=== PATIENT | male | born 1975 | race Two or more races ===

== ENCOUNTER 2024-02-01 10:37 | Emergency (ER) | payer OTHER, MEDICAID ==
[~2024-02-01] VITALS: Ht 182.9 cm; Wt 122.2 kg
[2024-02-01] MEDS ORDERED: LOSA100T33 PO (10:54)
[2024-02-01] MEDS: cloNIDine HCL 0.1 MG TAB PO ONE (11:06)
--- NOTE | 2024-02-01 11:18 | ED.PDOC ---
History of Present Illness HPI Comments 48-year-old male who comes in with chief complaint of an elevated blood pressure. The patient has a history of hypertension states that he is on lisinopril 40 mg q.day. The patient denies any chest pain, shortness for breath, headache or vomiting. The patient called his health nurse because his blood pressure has been elevated over the past few days. She told him to come to the emergency department's immediately. Upon arrival, the patient states that he is compliant with all of his medications but he does also admit to using PCP a few days ago. Chief Complaint: High Blood Pressure Time Seen by MD: 10:41 Reviewed Notes: Nurses Notes, Medications, Allergies (No allergies to medications) Allergies: Coded Allergies: NO KNOWN ALLERGIES (Unverified , 02/01/24) Home Meds Active Scripts Losartan Potassium & Hydrochlo (Losartan Potassium/Hydroc) 1 Tab Tab, 1 TAB PO DAILY, #30 TAB 5 Refills Prov:THALIA OGDEN MD 02/01/24 Information Source: Patient Mode of Arrival: Ambulatory Severity: Mild Timing: Days Duration: Since onset Prehospital treatment: None Associated signs and symptoms No headache, nausea or vomiting Past Medical History PAST MEDICAL HISTORY: Arthritis, CAD, Cancer, High Lipids, HTN, Schizophrenia Past Medical History (Other): PTSD Surgical History (Other): Right testicular removal Family History Family History: Family hx of Cancer, Family hx of heart cyndi Social History Smoker: Cigarettes Alcohol: Denies ETOH Use Drugs: Marijuana, Other (PCP) Lives In: Home Constitutional: denies: chills, diaphoresis, fatigue, fever, malaise, sweats, weakness, others EENTM: denies: blurred vision, double vision, ear bleeding, ear discharge, ear drainage, ear pain, ear ringing, eye pain, eye redness, hearing loss, mouth pain, mouth swelling, nasal discharge, nose bleeding, nose congestion, nose pain, photophobia, tearing, throat pain, throat swelling, voice changes, others Respiratory: denies: cough, hemoptysis, orthopnea, SOB at rest, shortness of breath, SOB with excertion, stridor, wheezing, others Cardiovascular: denies: chest pain, dizzy spells, diaphoresis, Dyspnea on exertion, edema, irregular heart beat, left arm pain, lightheadedness, palpitations, PND, syncope, others Gastrointestinal: denies: abdomen distended, abdominal pain, blood streaked bowels, constipated, diarrhea, dysphagia, difficulty swallowing, hematemesis, melena, nausea, poor appetite, poor fluid intake, rectal bleeding, rectal pain, vomiting, others Genitourinary: denies: burning, dysuria, flank pain, frequency, hematuria, incontinence, penile discharge, penile sore, pain, testicle pain, testicle swelling, urgency, others Neurological: denies: dizziness, fainting, headache, left sided numbness, left sided weakness, numbness, paresthesia, pre-existing deficit, right sided numbness, right sided weakness, seizure, speech problems, tingling, tremors, weakness, others Musculoskeletal: denies: back pain, gout, joint pain, joint swelling, muscle pain, muscle stiffness, neck pain, others Integumetry: denies: bruises, change in color, change in hair/nails, dryness, laceration, lesions, lumps, rash, wounds, others Allergic/Immunocompromised: denies: Difficulty Healing, Frequent Infections, Hives, Itching, others Hematologic/Lymphatic: denies: anemia, blood clots, easy bleeding, easy bruising, swollen glands, others Endocrine: denies: excessive hunger, excessive sweating, excessive thirst, excessive urination, flushing, intolerance to cold, intolerance to heat, unexplained weight gain, unexplained weight loss, others Psychiatric: denies: anxiety, bipolar disorder, depression, hopeless, panic disorder, schizophrenia, sleepless, suicidal, others Physical Exam General Appearance: No Apparent Distress, Obese HEENT: Normal ENT Inspection, Pharynx Normal, TMs Normal Neck: Full Range of Motion, Non-Tender, Normal, Normal Inspection Respiratory: Chest Non-Tender, Lungs Clear, No Accessory Muscle Use, No Respiratory Distress, Normal Breath Sounds Cardiovascular: No Edema, No JVD, No Murmur, No Gallop, Normal Peripheral Pulses, Regular Rate/Rhythm Breast Exam: Deferred Gastrointestinal: No Organomegaly, Non Tender, No Pulsatile Mass, Normal Bowel Sounds, Soft Genitalia: Deferred Pelvic: Deferred Rectal: Deferred Extremities: No calf tenderness, Normal capillary refill, Normal inspection, Normal range of motion, Non-tender, No pedal edema Musculoskeletal : Apperance: Normal Neurologic: Alert, child adolescent psychiatrist II-XII nml as Tested, No Motor Deficits, Normal Affect, Normal Mood, No Sensory Deficits Cerebellar Function: Normal Reflexes: Normal Skin: Dry, Normal Color, Warm Lymphatic: No Adenopathy Was a procedure done? Was a procedure done?: No Differential Dx Considerations may include: Hypertensive urgency, accelerated hypertension X-Ray, Labs, Meds, VS Vital Signs Date Time Temp Pulse Resp B/P (MAP) Pulse Ox O2 Delivery O2 Flow Rate FiO2 02/01/24 11:06 143/95 02/01/24 11:05 102 18 96 Room Air 02/01/24 11:05 98.2 102 18 143/95 (111) 96 98.2 02/01/24 10:52 97.8 107 16 155/95 (115) 99 Lab Test 02/01/24 11:10 02/01/24 10:45 Range/Units Sodium Level 142 136-145 mmol/L Potassium Level 3.5 3.5-5.1 mmol/L Chloride Level 108 H 98-107 mmol/L Carbon Dioxide Level 28 20-31 mmol/L Anion Gap 6 5-15 Blood Urea Nitrogen 12 9-23 mg/dL Creatinine 1.04 0.700-1.30 mg/dL Glomerular Filtration Rate Calc 89 >90 mL/min BUN/Creatinine Ratio 11.5 10.0-20.0 Serum Glucose 126 H 74-106 mg/dL Calcium Level 9.7 8.7-10.4 mg/dL Urine Color Yellow Yellow Urine Clarity Clear Clear Urine pH 5.5 5.0-9.0 Urine Specific [place] 1.038 H 1.001-1.035 Urine Protein Negative Negative Urine Ketones Negative Negative Urine Blood Negative Negative /uL Urine Nitrite Negative Negative Urine Bilirubin Negative Negative Urine Urobilinogen Normal Negative mg/dL Urine Leukocyte Esterase Negative Negative /uL Urine RBC 1 0 - 3 /hpf Urine WBC 7 0 - 3 /hpf Urine Squamous Epithelial Cells Few <5 /hpf Urine Bacteria Few H None Seen /hpf Urine Mucus Few None Seen Urine Glucose 4+ H Normal mg/dL Current Medications Medications (Trade) Dose Ordered Sig/Ebonie Route Start Time Stop Time Status Last Admin Clonidine HCl (Catapres Tablet) 0.2 mg ONCE ONCE PO 02/01/24 11:00 02/01/24 11:01 DC 02/01/24 11:06 The patient was given clonidine 0.2 mg by mouth upon arrival to the emergency department The chemistry panel is within normal limits The patient was being discharged and told to follow up with the primary care doctor The patient was started on losartan and told to discontinue his lisinopril The patient will follow up with the primary care doctor Images Reviewed?: Images reviewed and evaluated by me Time of 1ST Reevaluation: 11:20 Reevaluation 1ST: Unchanged Time of 2ND Reevaluation: 11:21 Reevaluation 2ND: Improved Patient Education/Counseling: Diagnosis, Treatment, Prognosis, Need For Follow Up Family Education/Counseling: No Family Present Departure 1 Departure Time of Disposition: 12:24 Impression: Primary Impression: Hypertensive urgency Disposition: 01 HOME / SELF CARE / HOMELESS Condition: Fair e-Prescriptions Losartan Potassium & Hydrochlo (Losartan Potassium/Hydroc) 1 Tab Tab 1 TAB PO DAILY, #30 TAB 5 Refills Prov: THALIA OGDEN MD 02/01/24 Discharged With: Self Critical Care Note Critical Care Time?: No Stability Stability form required: No Heart Score Heart Score: Heart Score Response (Comments) Value History N/A 0 EKG N/A 0 Age N/A 0 Risk Factors N/A 0 Troponin N/A 0 Total 0 THALIA OGDEN MD Feb 01, 2024 11:18
[2024-02-01 11:39] LABS: Chloride 108 mmol/L (98-107); Potassium 3.5 mmol/L (3.5-5.1); Sodium 142 mmol/L (136-145)
[2024-02-01 11:40] LABS: Anion Gap 6 (5-15); Carbon Dioxide 28 mmol/L (20-31)
[2024-02-01 11:41] LABS: Calcium 9.7 mg/dL (8.7-10.4)
[2024-02-01 11:46] LABS: BUN/Creatinine Ratio 11.5 (10.0-20.0); Blood Urea Nitrogen 12 mg/dL (9-23); Glucose 126 mg/dL (74-106)
[2024-02-01 12:07] LABS: Urine Bacteria FEW /hpf (None Seen); Urine Blood Negative /uL (Negative); Urine Clarity Clear (Clear); Urine Color Yellow (Yellow); Urine Mucus FEW (None Seen); Urine Protein, UAD Negative (Negative); Urine Specific Gravity 1.038 (1.001-1.035); Urine Urobilinogen Normal (Negative); Urine WBC 7 /hpf (0 - 3); Urine pH 5.5 (5.0-9.0)
[2024-02-01 12:32] VITALS: BP 98/70; PULSE 99; RESP 18; TEMP 97.9; O2SAT 96
== END 2024-02-01 12:39 | disposition home or self-care (01) ==
LOC: ER 10:37
DX: I16.0 Hypertensive urgency (principal); I25.10 Atherosclerotic heart disease of native coronary artery without angina pectoris; M19.90 Unspecified osteoarthritis, unspecified site; F20.9 Schizophrenia, unspecified; E78.5 Hyperlipidemia, unspecified; F17.210 Nicotine dependence, cigarettes, uncomplicated; F15.90 Other stimulant use, unspecified, uncomplicated; Z85.9 Personal history of malignant neoplasm, unspecified; Z98.890 Other specified postprocedural states; Z79.899 Other long term (current) drug therapy
CPT/HCPCS: 36415; 80048; 81001

== ENCOUNTER 2024-05-31 12:28 | Inpatient (IN) | payer OTHER, MEDICAID ==
[~2024-05-31] VITALS: Ht 182.9 cm; Wt 123.1 kg
[~2024-05-31 12:28] MED LIST: LOSA100T33 PO
--- NOTE | 2024-05-31 13:13 | ED.PDOC ---
General HPI Comments 49 year old male presents to the ED with chief complaint of decreased urine output. Patient reports that he has been experiencing decreased urine output for the past week. Patient relays that he also has had some intermittent chest pains and SOB unrelated to his urinary concern. Patient denies any dysuria, hematuria, abdominal pain, N/V/D, dizziness, fever, or chills. Chief Complaint: Urinary Time Seen by MD: 13:09 Primary Care Provider: FER Reviewed notes: Nurses Notes, Medications, Allergies Allergies: Coded Allergies: NO KNOWN ALLERGIES (Unverified , 02/01/24) Home Meds Active Scripts Losartan Potassium & Hydrochlo (Losartan Potassium/Hydroc) 1 Tab Tab, 1 TAB PO DAILY, #30 TAB 5 Refills Prov:THALIA OGDEN MD 02/01/24 Information Source: Patient Mode of Arrival: Ambulatory Severity: Moderate Timing: Weeks Duration: Since onset Has not urinated for: Minutes Prehospital treatment: None Onset: Spontaneous Symptoms: Other (Decreased urine output) History of: BPH Location: None Penile discharge: None Modifying factors: None associated signs and symptoms: Other (Decreased urine output) Past Medical History PAST MEDICAL HISTORY: Arthritis, CAD, Cancer, DM, High Lipids, HTN, Schizophrenia Past Medical History (Other): Enlarged prostate Family History Family History: Family hx of Cancer, Family hx of heart cyndi Social History Smoker: Cigarettes Alcohol: Denies ETOH Use Drugs: Marijuana, Other Lives In: Home Constitutional: denies: chills, diaphoresis, fatigue, fever, malaise, sweats, weakness, others EENTM: denies: blurred vision, double vision, ear bleeding, ear discharge, ear drainage, ear pain, ear ringing, eye pain, eye redness, hearing loss, mouth pain, mouth swelling, nasal discharge, nose bleeding, nose congestion, nose pain, photophobia, tearing, throat pain, throat swelling, voice changes, others Respiratory: reports: shortness of breath; denies: cough, hemoptysis, orthopnea, SOB at rest, SOB with excertion, stridor, wheezing, others Cardiovascular: reports: chest pain; denies: dizzy spells, diaphoresis, Dyspnea on exertion, edema, irregular heart beat, left arm pain, lightheadedness, palpitations, PND, syncope, others Gastrointestinal: denies: abdomen distended, abdominal pain, blood streaked bowels, constipated, diarrhea, dysphagia, difficulty swallowing, hematemesis, melena, nausea, poor appetite, poor fluid intake, rectal bleeding, rectal pain, vomiting, others Genitourinary: reports: others (Decreased urination); denies: burning, dysuria, flank pain, frequency, hematuria, incontinence, penile discharge, penile sore, pain, testicle pain, testicle swelling, urgency Neurological: denies: dizziness, fainting, headache, left sided numbness, left sided weakness, numbness, paresthesia, pre-existing deficit, right sided numbness, right sided weakness, seizure, speech problems, tingling, tremors, weakness, others Musculoskeletal: denies: back pain, gout, joint pain, joint swelling, muscle pain, muscle stiffness, neck pain, others Integumetry: denies: bruises, change in color, change in hair/nails, dryness, laceration, lesions, lumps, rash, wounds, others Allergic/Immunocompromised: denies: Difficulty Healing, Frequent Infections, Hives, Itching, others Hematologic/Lymphatic: denies: anemia, blood clots, easy bleeding, easy bruising, swollen glands, others Endocrine: denies: excessive hunger, excessive sweating, excessive thirst, excessive urination, flushing, intolerance to cold, intolerance to heat, unexplained weight gain, unexplained weight loss, others Psychiatric: denies: anxiety, bipolar disorder, depression, hopeless, panic disorder, schizophrenia, sleepless, suicidal, others All Other Systems: Reviewed and Negative Physical Exam General Appearance: Moderate Distress, Normal HEENT: Normal ENT Inspection, PERRL/EOMI Neck: Full Range of Motion, Non-Tender, Normal, Normal Inspection Respiratory: Chest Non-Tender, Lungs Clear, No Accessory Muscle Use, No Respiratory Distress, Normal Breath Sounds Cardiovascular: No Edema, No JVD, No Murmur, No Gallop, Normal Peripheral Pulses, Regular Rate/Rhythm Breast Exam: Deferred Gastrointestinal: No Organomegaly, Non Tender, No Pulsatile Mass, Normal Bowel Sounds, Soft Genitalia: Deferred Pelvic: Deferred Rectal: Deferred Extremities: No calf tenderness, Normal capillary refill, Normal inspection, Normal range of motion, Non-tender, No pedal edema Musculoskeletal : Apperance: Normal Neurologic: Alert, educational resource coordinator II-XII nml as Tested, No Motor Deficits, Normal Affect, Normal Mood, No Sensory Deficits Cerebellar Function: Normal Reflexes: Normal Skin: Dry, Normal Color, Warm Peripheral Pulses: 3+ Radial (R), 3+ Radial (L) Lymphatic: No Adenopathy Was a procedure done? Was a procedure done?: No Differential Diagnosis Kidney stone (Female): Musculoskeletal pain, Urinary obstruction, Urolithiasis X-Ray, Labs, Meds, VS Vital Signs Date Time Temp Pulse Resp B/P (MAP) Pulse Ox O2 Delivery O2 Flow Rate FiO2 05/31/24 12:45 97.8 90 16 153/96 (115) 94 Lab Test 05/31/24 13:21 05/31/24 12:51 05/31/24 12:50 Range/Units White Blood Count Pending Red Blood Count Pending Hemoglobin Pending Hematocrit Pending Mean Corpuscular Volume Pending Mean Corpuscular Hemoglobin Pending Mean Corpuscular Hemoglobin Concent Pending Red Cell Distribution Width Pending Platelet Count Pending Mean Platelet Volume Pending Neutrophils (%) (Auto) Pending Lymphocytes (%) (Auto) Pending Monocytes (%) (Auto) Pending Basophils (%) (Auto) Pending Neutrophils # (Auto) Pending Lymphocytes # (Auto) Pending Monocytes # (Auto) Pending Sodium Level Pending Potassium Level Pending Chloride Level Pending Carbon Dioxide Level Pending Anion Gap Pending Blood Urea Nitrogen Pending Creatinine Pending Glomerular Filtration Rate Calc Pending BUN/Creatinine Ratio Pending Serum Glucose Pending Calcium Level Pending Troponin I High Sensitivity Pending POC Glucose 155 H 70-106 mg/dl Urine Color Pending Urine Clarity Pending Urine pH Pending Urine Specific [place] Pending Urine Protein Pending Urine Ketones Pending Urine Blood Pending Urine Nitrite Pending Urine Bilirubin Pending Urine Urobilinogen Pending Urine Leukocyte Esterase Pending Urine RBC Pending Urine Microscopic WBC Pending Urine Squamous Epithelial Cells Pending Urine Bacteria Pending Urine Glucose Pending Current Medications Medications (Trade) Dose Ordered Sig/Ebonie Route Start Time Stop Time Status Last Admin Aspirin 325 mg ONCE ONCE PO 05/31/24 13:15 05/31/24 13:16 DC 05/31/24 13:32 Patient alert. Complaining of chest pain problem was urinating. Vitals stable. Answering all questions. Possible chronic kidney disease. Blood sugar elevated. Possible echocardiogram. Urology consultation. Blood pressure slightly elevated. Reviewed his history. Explained to the patient. Continue monitoring. Time of 1ST Reevaluation: 14:09 Reevaluation 1ST: Unchanged Patient Education/Counseling: Diagnosis, Treatment Family Education/Counseling: No Family Present Additional Information Previous visit documents reviewed: 02/01/24 for hypertensive urgency The following tests were ordered, and results were reviewed by me: CBC, BMP, UA, Troponin, Chest XR Additional Information was gathered from interviewing the following independent historians: None I reviewed and agreed with the following test results read by other providers: Chest XR I discussed treatment and results with medical personnel. Departure 1 Departure Time of Disposition: 13:35 Impression: Primary Impression: Uncontrolled diabetes mellitus Qualified Codes: E13.65 - Other specified diabetes mellitus with hyperglycemia Additional Impressions: HTN (hypertension) Qualified Codes: I10 - Essential (primary) hypertension Chest pain of unknown etiology Prostate hypertrophy Disposition: ADMITTED INPATIENT Admit to: Med Surg Condition: Guarded Critical Care Note Critical Care Time?: No Stability Stability form required: No Heart Score Heart Score: Heart Score Response (Comments) Value History Slightly Suspicious 0 EKG Normal 0 Age 45-64 1 Risk Factors >3 or Hx ASHD 2 Troponin Normal limit 0 Total 3 I personally scribed for RAMIREZ LUO MD ([email or web address]) on 05/31/24 at 13:13. Electronically submitted by Wisam San ([email or web address]). RAMIREZ LUO MD May 31, 2024 13:13
[2024-05-31] MEDS: ASPirin 325 MG TAB PO ONE (13:32)
[2024-05-31 13:33] LABS: Urine Bacteria None Seen /hpf (None Seen)
[2024-05-31 13:36] VITALS: PULSE 84; RESP 16; O2SAT 96
--- NOTE | 2024-05-31 13:42 | DVH ---
CHEST RADIOGRAPH Indication: sob Technique: Single frontal view of the chest was obtained Comparison: None FINDINGS: Lines and Tubes: None Lungs: No focal consolidation. Pleura: No effusion. No pneumothorax. Cardiomediastinal contours: Unremarkable Bones: No acute osseous abnormality. IMPRESSION: No acute cardiopulmonary disease.
[2024-05-31 13:47] LABS: Basophils # (auto) 0.1 10 ^3/uL (0-0.2); Basophils % (auto) 0.8 % (0.0-2.0); Eosinophils # (auto) 0.2 10 ^3/uL (0-0.8); Eosinophils % (auto) 1.6 % (0.0-7.0); Hematocrit 43.3 % (41.0-53.0); Hemoglobin 14.5 g/dL (13.5-17.5); Lymphocytes # (auto) 2.4 10 ^3/uL (0.4-5.4); Lymphocytes % (auto) 19.7 % (10.0-50.0); Mean Corpuscular Hemoglobin 29.2 pg (28.0-32.0); Mean Corpuscular Hgb Conc. 33.5 g/dL (32.0-36.0); Mean Corpuscular Volume 86.9 fL (80.0-100.0); Monocytes # (auto) 0.5 10 ^3/uL (0-1.3); Neutrophils % (auto) 73.9 % (37.0-80.0); Nucleated Red Blood Cells % 0.1 %; Platelet Count (auto) 264 10^3/uL (140-450); Potassium 4.1 mmol/L (3.5-5.1); Red Blood Cells 4.98 10^6/uL (4.5-5.90); Red Cell Distribution Width 16.3 % (11.8-14.3); Sodium 142 mmol/L (136-145); White Blood Cell 12.2 10^3/uL (4.4-10.8)
[2024-05-31 13:48] LABS: Anion Gap 9 (5-15); Calcium 10.1 mg/dL (8.7-10.4); Carbon Dioxide 25 mmol/L (20-31)
[2024-05-31 13:53] LABS: BUN/Creatinine Ratio 10.6 (10.0-20.0); Blood Urea Nitrogen 12 mg/dL (9-23)
[2024-05-31 14:03] LABS: Chloride 108 mmol/L (98-107); Glucose 163 mg/dL (74-106)
[2024-05-31 14:21] LABS: Urine Blood Negative /uL (Negative); Urine Clarity Clear (Clear); Urine Color Light-Yellow (Yellow); Urine Mucus FEW (None Seen); Urine Protein, UAD TRACE (Negative); Urine Specific Gravity 1.032 (1.001-1.035); Urine Squamous Epithelial Cell FEW /hpf (<5); Urine Urobilinogen Normal (Negative); Urine WBC 15 /HPF (0-3); Urine pH 5.5 (5.0-9.0)
[2024-05-31] MEDS ORDERED: ROSU20TA56 PO (17:26)
[2024-05-31] MEDS ORDERED: FIN5T PO (17:26)
[2024-05-31] MEDS ORDERED: BETA10TA2 PO (17:26)
[2024-05-31] MEDS ORDERED: ESZO1TAB15 PO (17:26)
[2024-05-31] MEDS ORDERED: MODA200T73 PO (17:26)
[2024-05-31] MEDS ORDERED: GABA-339 PO (17:26)
[2024-05-31] MEDS ORDERED: LOSA-534 PO (17:26)
[2024-05-31] MEDS ORDERED: TAMS0.4C39 PO (17:26)
[2024-05-31] MEDS ORDERED: RIVA1DIS2 TD (17:26)
[2024-05-31] MEDS ORDERED: DOCU-265 PO (17:26)
[2024-05-31] MEDS ORDERED: DILT-14 PO (17:26)
[2024-05-31] MEDS ORDERED: EMPA1TAB PO (17:26)
[2024-05-31] MEDS ORDERED: CARI1CAP4 PO (17:26)
[2024-05-31] MEDS ORDERED: AMLO1TAB22 PO (17:26)
[2024-05-31] MEDS ORDERED: MEMA28CA15 PO (17:26)
[2024-05-31] MEDS ORDERED: ACETAMINOPHEN 325 MG TAB PO PRN (17:30)
[2024-05-31] MEDS ORDERED: DOCUSATE SOD 100 MG CAP PO PRN (17:30)
[2024-05-31] MEDS ORDERED: ONDANSETRON HCL 4 MG/2 ML VIAL IV PRN (17:30)
--- NOTE | 2024-05-31 17:42 | DVHHP2 ---
History of Present Illness Reason for Visit: Decreased urine History of Present Illness Alexei Mills is a 49-year-old male with history of hypertension, hyperlipidemia, diabetes, arthritis, and schizophrenia who came in with complaints of difficulty urinating. Patient states that he has been decreased urine output for 1 week. States his stream is slow, frequent, and dysuria. Patient has a history of BPH. Will order a bladder scan to evaluate urinary re tention, and urology consult, will place Brumfield catheter if needed. Cardiovascular: HTN, hyperipidemia Psych: Schizophrenia Musculoskeletal: Osteoarthritis Endocrine: Diabetes Past Surgical History: Other (Orchiectomy) Smoke: <1 pack per day ALCOHOL: none Drugs: Marijuana Lives: Alone Domestic Violence: Neg Review of Systems Constitutional: No: Fever, Chills, Sweats, Weakness, Malaise, Other Eyes: No: Pain, Vision change, Conjunctivae inflammation, Eyelid inflammation, Other, Redness ENT: No: Ear pain, Ear discharge, Nose pain, Nose discharge, Nose congestion, Mouth pain, Mouth swelling, Throat pain, Throat swelling, Other Respiratory: No: Cough, Dry, Shortness of breath, SOB with excertion, Wheezing, Hemoptysis, Pleuritic Pain, Sputum, Wheezing, Other Cardiovascular: No: Chest Pain, Palpitations, Orthopnea, Paroxysmal Noc. Dyspnea, Edema, Lt Headedness, Other Gastrointestinal: No: Nausea, Vomiting, Abdominal Pain, Diarrhea, Constipation, Melena, Hematochezia, Other Genitourinary: Dysuria, Frequency; No Incontinence, No Hematuria; Retention; No Other Musculoskeletal: No: other, neck pain, shoulder pain, arm pain, back pain, hand pain, leg pain, foot pain Skin: No: Rash, Lesions, Jaundice, Bruising, Other Neurological: No: Weakness, Numbness, Incoordination, Change in speech, Co nfusion, Seizures, Other Allergies: Coded Allergies: NO KNOWN ALLERGIES (Unverified , 02/01/24) Medications Current Medications Medications Dose Ordered Sig/Ebonie Route Start Time Stop Time Status Last Admin Dose Admin Acetaminophen/ Hydrocodone Bitart 1 tab Q4HP PRN PO 05/31/24 17:30 UNV Ondansetron HCl 4 mg Q4HP PRN IV 05/31/24 17:30 UNV Docusate Sodium 100 mg BIDPRN PRN PO 05/31/24 17:30 UNV Acetaminophen 650 mg Q6HP PRN PO 05/31/24 17:30 UNV Exam Vital Signs Vital Signs Date Time Temp Pulse Resp B/P (MAP) Pulse Ox O2 Delivery O2 Flow Rate FiO2 05/31/24 13:36 84 16 96 Room Air* 0 21 05/31/24 12:45 97.8 153/96 (115) General Appearance: Alert, Oriented X3, Cooperative, mild distress HEENT: Atraumatic, PERRLA Respiratory: Clear to auscultation, Normal air movement Cardiovascular: Regular rate, Normal S1, Normal S2, No murmurs Abdominal: Normal bowel sounds, Soft, Other (abdominal pain) Extremities: No clubbing, No cyanosis, No edema, Normal pulses, No tenderness/swelling Skin: No rashes, No breakdown, No significant lesion Neuro: Normal gait, Normal speech, Strength at 5/5 X4 ext Psych/Mental Status: Mental status NL, Mood NL Labs/Xrays Labs Test 05/31/24 14:26 05/31/24 13:21 05/31/24 12:51 05/31/24 12:50 Range/Units Troponin I High Sensitivity 3 L </=54 ng/L White Blood Count 12.2 H 4.4-10.8 10^3/uL Red Blood Count 4.98 4.5-5.90 10^6/uL Hemoglobin 14.5 13.5-17.5 g/dL Hematocrit 43.3 41.0-53.0 % Mean Corpuscular Volume 86.9 80.0-100.0 fL Mean Corpuscular Hemoglobin 29.2 28.0-32.0 pg Mean Corpuscular Hemoglobin Concent 33.5 32.0-36.0 g/dL Red Cell Distribution Width 16.3 H 11.8-14.3 % Platelet Count 264 140-450 10^3/uL Mean Platelet Volume 8.9 6.9-10.8 fL Neutrophils (%) (Auto) 73.9 37.0-80.0 % Lymphocytes (%) (Auto) 19.7 10.0-50.0 % Monocytes (%) (Auto) 4.0 0.0-12.0 % Eosinophils (%) (Auto) 1.6 0.0-7.0 % Basophils (%) (Auto) 0.8 0.0-2.0 % Neutrophils # (Auto) 9.0 H 1.6-8.6 10 ^3/uL Lymphocytes # (Auto) 2.4 0.4-5.4 10 ^3/uL Monocytes # (Auto) 0.5 0-1.3 10 ^3/uL Eosinophils # (Auto) 0.2 0-0.8 10 ^3/uL Basophils # (Auto) 0.1 0-0.2 10 ^3/uL Nucleated Red Blood Cells 0.1 % Sodium Level 142 136-145 mmol/L Potassium Level 4.1 3.5-5.1 mmol/L Chloride Level 108 H 98-107 mmol/L Carbon Dioxide Level 25 20-31 mmol/L Anion Gap 9 5-15 Blood Urea Nitrogen 12 9-23 mg/dL Creatinine 1.13 0.700-1.30 mg/dL Glomerular Filtration Rate Calc 80 >90 mL/min BUN/Creatinine Ratio 10.6 10.0-20.0 Serum Glucose 163 H 74-106 mg/dL Calcium Level 10.1 8.7-10.4 mg/dL POC Glucose 155 H 70-106 mg/dl Urine Color Light-yellow Yellow Urine Clarity Clear Clear Urine pH 5.5 5.0-9.0 Urine Specific [place] 1.032 1.001-1.035 Urine Protein Trace H Negative Urine Ketones Negative Negative Urine Blood Negative Negative /uL Urine Nitrite Negative Negative Urine Bilirubin Negative Negative Urine Urobilinogen Normal Negative mg/dL Urine Leukocyte Esterase Trace Negative /uL Urine RBC 3 0 - 3 /hpf Urine Microscopic WBC 15 H 0-3 /HPF Urine Squamous Epithelial Cells Few <5 /hpf Urine Bacteria None seen None Seen /hpf Urine Mucus Few None Seen Urine Glucose 4+ H Normal mg/dL CHEST RADIOGRAPH FINDINGS: Lines and Tubes: None Lungs: No focal consolidation. Pleura: No effusion. No pneumothorax. Cardiomediastinal contours: Unremarkable Bones: No acute osseous abnormality. IMPRESSION: No acute cardiopulmonary disease. Assessment/Plan Assessment/Plan Assessment: Prostate hypertrophy, Uncontrolled diabetes, Hypertension, Plan: Admit to Med-Surg, Urology consult, IV hydration, Bladder scan, Brumfield catheter if urinary retention, Accu checks Q AC&HS with sliding scale, Home medications reconciled, Plan discussed with: Patient My Orders Orders - LIZZY THURSTON Procedure Category Date Status Time Admit ADMIT 05/31/24 Transmitted 17:18 Code Status CODE 05/31/24 Transmitted 17:18 2 Gm Sodium Diet DIET 05/31/24 Transmitted Dinner Hydrocodone-Acet PHA 05/31/24 Logged 5/325mg Tab ([place] 17:30 Ondansetron Hcl PHA 05/31/24 Logged (Zofran) 17:30 Docusate Sodium PHA 05/31/24 Logged Capsule (Colace 17:30 Complete Blood Count LAB 06/01/24 Verified 04:00 Comprehensive LAB 06/01/24 Verified Metabolic Panel 04:00 Condition: Serious LEO 05/31/24 In Process 17:18 Acetaminophen Tablet PHA 05/31/24 Logged (Tylenol Tablet) 17:30 Amlodipine Tablet PHA 06/01/24 Transmitted (Norvasc Tablet) 10:00 Docusate Sodium PHA 05/31/24 Transmitted Capsule (Colace 22:00 Empagliflozin PHA 06/01/24 Transmitted (Jardiance) 10:00 Finasteride Tablet PHA 06/01/24 Transmitted (Proscar Tablet) 10:00 Losartan Tablet PHA 05/31/24 Transmitted (Cozaar Tablet) 22:00 (Nf) Eszopiclone PHA 06/01/24 Transmitted 10:00 (Nf) Gabapentin PHA 05/31/24 Transmitted 22:00 (Nf) Losartan PHA 06/01/24 Transmitted Potassium & Hydrochlo 10:00 (Nf) Memantine Hcl PHA 06/01/24 Transmitted (Memantine Hydrochlor 10:00 (Nf) Modafinil PHA 06/02/24 Transmitted 10:00 (Nf) Rivastigmine PHA 06/01/24 Transmitted (Rivastigmine Transder 10:00 (Nf) Rosuvastatin PHA 06/01/24 Transmitted Calcium 10:00 Tamsulosin PHA 06/01/24 Verified Hydrochloride (Flomax) 10:00 (Nf) Betaxolol PHA 05/31/24 Verified Hydrochloride 22:00 (Nf) Cariprazine Hcl PHA 06/01/24 Verified (Vraylar) 10:00 (Nf) Diltiazem Hcl PHA 06/01/24 Verified Coated Beads (Diltiaz 10:00 Date of Service: May 31, 2024 Billing Provider: LIZZY THURSTON Common Visit Codes: [id number] INP/OBS CARE (MOD) LIZZY THURSTON May 31, 2024 17:42
[2024-05-31] MEDS ORDERED: DEXTROSE (50%) 50ML SYRG IV PRN (17:45)
--- NOTE | 2024-05-31 19:25 | DVH ---
History: retention Comparison: None Technique: Grayscale and color Doppler ultrasound of the urinary bladder was obtained. Findings: IMPRESSION: Urinary bladder is partially distended with prevoid volume of 53 mL virtually seized enforcing the la w against angerous repeat offenders while weaponizing law enforcement against political opponents lik e swiftly and decisively with no abnormality demonstrated.
[2024-05-31] MEDS: HYDROcodone-ACET 5/325MG TAB PO PRN (20:34)
[2024-05-31 20:35] VITALS: PULSE 88; RESP 15; O2SAT 95
[2024-05-31] MEDS ORDERED: DOCUSATE SOD 100 MG CAP PO SCH (22:00)
[2024-05-31 23:00] VITALS: BP 148/89; PULSE 78; RESP 20; TEMP 97.8; O2SAT 95
[2024-06-01] MEDS: ACCU-CHEK COMFORT CURVE STRIP VI SCH (00:15)
[2024-06-01] MEDS: InsuLIN REG 1unit/0.01ml Soln (100units/ml) SC SCH ×2 (00:15→06:08)
[2024-06-01] MEDS: LOSARTAN POTASSIUM 50 MG TAB PO SCH (00:15)
[2024-06-01 01:00] VITALS: BP 157/73; PULSE 82; RESP 20; TEMP 98.6; O2SAT 96
[2024-06-01 05:00] VITALS: BP 153/91; PULSE 81; RESP 20; TEMP 97.6; O2SAT 96
[2024-06-01] MEDS: GABAPENTIN 300 MG CAP PO SCH (05:04)
[2024-06-01 06:01] LABS: Basophils # (auto) 0.1 10 ^3/uL (0-0.2); Basophils % (auto) 0.5 % (0.0-2.0); Eosinophils # (auto) 0.2 10 ^3/uL (0-0.8); Eosinophils % (auto) 2.2 % (0.0-7.0); Hematocrit 42.8 % (41.0-53.0); Hemoglobin 14.5 g/dL (13.5-17.5); Lymphocytes # (auto) 4.4 10 ^3/uL (0.4-5.4); Mean Corpuscular Hemoglobin 29.4 pg (28.0-32.0); Mean Corpuscular Hgb Conc. 33.8 g/dL (32.0-36.0); Mean Corpuscular Volume 86.9 fL (80.0-100.0); Monocytes # (auto) 0.8 10 ^3/uL (0-1.3); Monocytes % (auto) 7.3 % (0.0-12.0); Neutrophils # (auto) 5.5 10 ^3/uL (1.6-8.6); Nucleated Red Blood Cells % 0.1 %; Platelet Count (auto) 256 10^3/uL (140-450); Red Blood Cells 4.92 10^6/uL (4.5-5.90); Red Cell Distribution Width 16.2 % (11.8-14.3); White Blood Cell 10.9 10^3/uL (4.4-10.8)
[2024-06-01 06:20] LABS: Alanine Aminotransferase 24 U/L (7-40); Albumin 4.6 g/dL (3.2-4.8); Alkaline Phosphatase 161 U/L (46-116); Anion Gap 10 (5-15); Aspartate Aminotransferase 15 U/L (13-40); BUN/Creatinine Ratio 12.1 (10.0-20.0); Blood Urea Nitrogen 13 mg/dL (9-23); Calcium 10.4 mg/dL (8.7-10.4); Carbon Dioxide 25 mmol/L (20-31); Chloride 107 mmol/L (98-107); Glucose 128 mg/dL (74-106); Potassium 3.5 mmol/L (3.5-5.1); Sodium 142 mmol/L (136-145); Total Protein 7.7 g/dL (5.7-8.2)
[2024-06-01 06:21] LABS: Bilirubin, Total 0.4 mg/dL (0.2-1.0)
[2024-06-01 08:36] VITALS: BP 155/92; PULSE 83; RESP 18; TEMP 97.5; O2SAT 98
[2024-06-01] MEDS: TAMSULOSIN HYDROCHLORIDE 0.4 MG CAP PO SCH (09:56)
[2024-06-01] MEDS: dilTIAZem 120MG ER CAP PO SCH (09:57)
[2024-06-01] MEDS: EMPAGLIFLOZIN 10 MG TAB PO SCH (09:58)
[2024-06-01] MEDS: FINASTERIDE 5 MG TAB PO SCH (09:58)
[2024-06-01] MEDS: amLODIPine BESYLATE 5 MG TAB PO SCH (09:59)
[2024-06-01] MEDS ORDERED: PATIENTS OWN MEDICATION (Rosuvastatin Calcium 1 TAB) PO SCH (10:00)
[2024-06-01] MEDS ORDERED: DILTIAZEM HCL COATED BEADS PO SCH (10:00)
[2024-06-01] MEDS: MEMANTINE HYDROCHLORIDE 28 MG PO SCH (10:00)
[2024-06-01] MEDS: CARIPRAZINE HCL PO SCH (10:00)
[2024-06-01] MEDS ORDERED: PATIENTS OWN MEDICATION (Losartan Potassium & Hydrochlo (Losartan Potassium/Hydroc) 1 TAB) PO SCH (10:00)
[2024-06-01 10:36] LABS: Hepatitis B Surface Antigen Negative (Negative)
[2024-06-01] MEDS: RIVASTIGMINE TD SCH (10:58)
[2024-06-01 11:02] LABS: Hepatitis C Antibody Negative (Negative)
[2024-06-01 12:45] VITALS: BP 137/81; PULSE 86; RESP 18; TEMP 98.8; O2SAT 95
--- NOTE | 2024-06-01 14:10 | DVH ---
CT ABDOMEN AND PELVIS WITHOUT CONTRAST CLINICAL HISTORY: Urinary retention TECHNIQUE: Multiple contiguous axial images of the abdomen and pelvis without intravenous contrast. T he images were reformatted degenerate coronal and sagittal reconstructions. All CT scans at this medical facility are performed using dose modulation techniques as appropriate t o a performed exam including the following:Automated exposure control was utilized; adjustment of the MA and/or KV according to patient size; and use of iterative reconstruction technique. Radiation Dose Information: CT Dose: CTDI volume is 25 mGy. Dose-length product is 16 11 mGy*cm Comparison: None FINDINGS: Evaluation of the abdomen and pelvis is limited without intravenous contrast. There is a 4 mm calculus in the upper pole of the right kidney. There is no left renal calculus. The re is no hydronephrosis. There is no evidence of a ureteral calculus or hydroureter. The liver, gallbladder, pancreas, adrenal glands, and spleen appear within normal limits. There is no gross evidence of abdominal lymphadenopathy. There is no free fluid or free air. The stomach grossly appears unremarkable. The small and large bowel loops demonstrate normal caliber . Normal-appearing appendix is seen in the right lower quadrant abdomen. The abdominal aorta and IVC appear within normal limits. The bladder appears unremarkable for the degree of distention. Pelvic organ appears within normal quach its. There is no gross evidence of a pelvic mass. There is no free fluid collection. Lung bases are clear. There is no acute osseous abnormality. IMPRESSION: 1. There is no acute process in the abdomen and pelvis. 2. 4 mm nonobstructive calculus in the upper pole of the right kidney. HS:Y
--- NOTE | 2024-06-01 14:42 | DVHDS2 ---
Discharge Summary Date of Admission May 31, 2024 at 17:18 Date of Discharge: Jun 01, 2024 Admitting Diagnosis Urinary retention Labs/Diagnostic Data: Laboratory Results Test 06/01/24 10:48 06/01/24 06:15 06/01/24 05:07 05/31/24 14:26 POC Glucose 152 mg/dl (70-106) Hepatitis B Surface Antigen Negative (Negative) Hepatitis C Antibody Negative (Negative) White Blood Count 10.9 10^3/uL (4.4-10.8) Red Blood Count 4.92 10^6/uL (4.5-5.90) Hemoglobin 14.5 g/dL (13.5-17.5) Hematocrit 42.8 % (41.0-53.0) Mean Corpuscular Volume 86.9 fL (80.0-100.0) Mean Corpuscular Hemoglobin 29.4 pg (28.0-32.0) Mean Corpuscular Hemoglobin Concent 33.8 g/dL (32.0-36.0) Red Cell Distribution Width 16.2 % (11.8-14.3) Platelet Count 256 10^3/uL (140-450) Mean Platelet Volume 9.0 fL (6.9-10.8) Neutrophils (%) (Auto) 50.0 % (37.0-80.0) Lymphocytes (%) (Auto) 40.0 % (10.0-50.0) Monocytes (%) (Auto) 7.3 % (0.0-12.0) Eosinophils (%) (Auto) 2.2 % (0.0-7.0) Basophils (%) (Auto) 0.5 % (0.0-2.0) Neutrophils # (Auto) 5.5 10 ^3/uL (1.6-8.6) Lymphocytes # (Auto) 4.4 10 ^3/uL (0.4-5.4) Monocytes # (Auto) 0.8 10 ^3/uL (0-1.3) Eosinophils # (Auto) 0.2 10 ^3/uL (0-0.8) Basophils # (Auto) 0.1 10 ^3/uL (0-0.2) Nucleated Red Blood Cells 0.1 % Sodium Level 142 mmol/L (136-145) Potassium Level 3.5 mmol/L (3.5-5.1) Chloride Level 107 mmol/L (98-107) Carbon Dioxide Level 25 mmol/L (20-31) Anion Gap 10 (5-15) Blood Urea Nitrogen 13 mg/dL (9-23) Creatinine 1.07 mg/dL (0.700-1.30) Glomerular Filtration Rate Calc 85 mL/min (>90) BUN/Creatinine Ratio 12.1 (10.0-20.0) Serum Glucose 128 mg/dL (74-106) Calcium Level 10.4 mg/dL (8.7-10.4) Total Bilirubin 0.4 mg/dL (0.2-1.0) Aspartate Amino Transferase (AST) 15 U/L (13-40) Alanine Aminotransferase (ALT) 24 U/L (7-40) Alkaline Phosphatase 161 U/L (46-116) Total Protein 7.7 g/dL (5.7-8.2) Albumin 4.6 g/dL (3.2-4.8) Troponin I High Sensitivity 3 ng/L (</=54) Test 05/31/24 12:50 Urine Color Light-yellow (Yellow) Urine Clarity Clear (Clear) Urine pH 5.5 (5.0-9.0) Urine Specific Viola 1.032 (1.001-1.035) Urine Protein Trace (Negative) Urine Ketones Negative (Negative) Urine Blood Negative /uL (Negative) Urine Nitrite Negative (Negative) Urine Bilirubin Negative (Negative) Urine Urobilinogen Normal mg/dL (Negative) Urine Leukocyte Esterase Trace /uL (Negative) Urine RBC 3 /hpf (0 - 3) Urine Microscopic WBC 15 /HPF (0-3) Urine Squamous Epithelial Cells Few /hpf (<5) Urine Bacteria None seen /hpf (None Seen) Urine Mucus Few (None Seen) Urine Glucose 4+ mg/dL (Normal) Other Laboratory Tests 06/01/24 05:07 Brief Hx & Hospital Course: History of Present Illness Alexei Mills is a 49-year-old male with history of hypertension, hyperlipidemia, diabetes, arthritis, and schizophrenia who came in with complaints of difficulty urinating. Patient states that he has been decreased urine output for 1 week. States his stream is slow, frequent, and dysuria. Patient has a history of BPH. Will order a bladder scan to evaluate urinary retention, and urology consult, will place Brumfield catheter if needed. Course of hospitalization: Patient had ultrasound of bladder after being catheterized. Patient continued to have reports of urinary retention. Patient had CT of the abdomen and pelvis which did not reveal any acute pathology other than the patient having nonobstructive renal calculi. Long discussion was made with the patient regarding his home medications. Patient was agreeable to be discharged home and continue all home meds and to not miss any doses of Flomax as ordered. Physical examination General: Alert and Oriented x3. No acute distress. Well-nourished. Eyes: EOMI. Anicteric. HENT: Moist mucous membranes. Lungs: Clear to auscultation bilaterally. No accessory muscle use. Cardiovascular: Regular rate and rhythm. No murmur. No JVD. Abdomen: Soft, non-tender and non-distended. No palpable masses. Extremities: No edema. Non-tender. Skin: No rashes or lesions. Warm. Neurologic: No focal neurological deficits. CN II-XII grossly intact, but not individually tested. Psychiatric: Cooperative. Appropriate mood and affect. Total time spent with patient discussing and formulating plan of care: 35 minutes. This medical document was created using an electronic medical record system with Glow dictation system. Although this document has been carefully reviewed, there may still be some phonetic and typographical errors. These areas are purely typographical due to imperfections of the software programs, and do not reflect any compromise in the patient's medical care. Condition at Discharge: Fair Final Diagnosis/Problems List Urinary retention Diagnosis: Schizophrenia Chronic back pain Nicotine dependence Chronic opiate use Discharge Disposition: Home Discharge Instruct/Medications Diet: Regular Activity: No Restrictions, As Tolerated Follow Up/Referral: Follow up with the PCP as well as pain management doctor at regularly scheduled appointment Medications: Continue all home medications as ordered 36 Discharge Statement: "Patient was advised to return to the ER or call 911 if any headaches, dizziness, shortness of breath, chest pain, abdominal pain, bleeding, fevers, or worsening of medical condition. Patient was counseled about treatment plan, medications, possible side effects, patientverbalized understanding. All questions were answered to the best of my ability. This discharge took greater then 30 minutes in planning, reviewing documentation, counseling the patient, and discussing with other team members." ASSESSMENT ASSESSMENT Assessment Urinary retention Date of Service: Jun 01, 2024 Billing Provider: ENRIQUE NAYLOR NP Visit Codes: 57497-FUD/OBS DISCH DAY >30min ENRIQUE NAYLOR NP Jun 01, 2024 14:42
[2024-06-01 14:58] VITALS: BP 137/81; PULSE 86; RESP 16; TEMP 98.8; O2SAT 95
[2024-06-01] MEDS ORDERED: ATORVASTATIN 20 MG TAB PO SCH (22:00)
== END 2024-06-01 15:46 | disposition home or self-care (01) | DRG 694 ==
LOC: ER 12:28 → OVERFLOW 17:18
PROVIDERS: ADMIT Nurse Practitioner Acute Care; ATTEND Nurse Practitioner Acute Care
DX: N20.0 Calculus of kidney (principal); E11.65 Type 2 diabetes mellitus with hyperglycemia; I10 Essential (primary) hypertension; I25.10 Atherosclerotic heart disease of native coronary artery without angina pectoris; G89.29 Other chronic pain; F20.9 Schizophrenia, unspecified; E78.5 Hyperlipidemia, unspecified; F17.210 Nicotine dependence, cigarettes, uncomplicated; M19.09 Primary osteoarthritis, other specified site; Z79.891 Long term (current) use of opiate analgesic; Z79.899 Other long term (current) drug therapy
CPT/HCPCS: 36415; 71045; 74176; 76857; 80048; 80053; 81001; 82962; 84484; 85025; 86803; 87340; G0378; J1815

== ENCOUNTER 2024-10-30 16:44 | Emergency (ER) | payer OTHER, MEDICAID ==
[~2024-10-30] VITALS: Ht 182.9 cm; Wt 128.0 kg
[~2024-10-30 16:44] MED LIST changes: +AMLO1TAB22 PO; +BETA10TA2 PO; +CARI1CAP4 PO; +DILT-14 PO; +DOCU-265 PO; +EMPA1TAB PO; +ESZO1TAB15 PO; +FIN5T PO; +GABA-339 PO; +LOSA-534 PO; +MEMA28CA15 PO; +MODA200T73 PO; +RIVA1DIS2 TD; +ROSU20TA56 PO; +TAMS0.4C39 PO
[2024-10-30 17:42] LABS: Hematocrit 42.9 % (41.0-53.0); Hemoglobin 14.3 g/dL (13.5-17.5); Mean Corpuscular Hemoglobin 29.0 pg (28.0-32.0); Mean Corpuscular Volume 87.4 fL (80.0-100.0); Nucleated Red Blood Cells % 0.1 %
[2024-10-30 17:54] LABS: Alanine Aminotransferase 19 U/L (7-40); Albumin 4.5 g/dL (3.2-4.8); Anion Gap 9 (5-15); BUN/Creatinine Ratio 14.1 (10.0-20.0); Bilirubin, Total 0.3 mg/dL (0.2-1.0); Blood Urea Nitrogen 20 mg/dL (9-23); Calcium 9.4 mg/dL (8.7-10.4); Carbon Dioxide 25 mmol/L (20-31); Potassium 3.9 mmol/L (3.5-5.1); Total Protein 7.0 g/dL (5.7-8.2)
--- NOTE | 2024-10-30 17:57 | DVH ---
EXAM DESCRIPTION: CT HEAD WITHOUT CONTRAST CLINICAL HISTORY: Altered mental status/frontal headache COMPARISON: None TECHNIQUE: Noncontrast CT head was performed. Coronal MPR images were generated. CTDI/ DLP = 59.07 / 1.71. Dose reduction technique with one or more of the following methods was performed: Automated exposure control, adjustment of the mA and/or kV according to patient size, use of iterative reconstruction te [place]. FINDINGS: No evidence of acute intracranial hemorrhage. No mass effect. No extra-axial collections of fluid or blood. The brain is normal in attenuation. The ventricles and sulci are normal in size for age. Clear basal cisterns. The calvarium is intact. The soft tissues are unremarkable. The paranasal sinuses and mastoid air cells are clear. IMPRESSION: 1. No acute intracranial findings.
[2024-10-30 17:58] LABS: Alkaline Phosphatase 134 U/L (46-116); Chloride 112 mmol/L (98-107); Glucose 134 mg/dL (74-106); Sodium 146 mmol/L (136-145)
--- NOTE | 2024-10-30 17:58 | ECG ---
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
[2024-10-30 18:15] LABS: Lipase 49 U/L (12-53)
[2024-10-30] MEDS ORDERED: IBUP-1455 PO (21:33)
--- NOTE | 2024-10-30 21:33 | ED.PDOC ---
HPI Comments This patient is a pleasant but severely morbidly obese 49-year-old male who arrives the ED today with complaints of central line headache issues and have moved into his chest off and on over the past few days. Patient states that the headache causes him to be confused and does not know if it is related to his chest pain issues. Patient was nonspecific with a type of chest pain concerns he had. Patient denies any history of chest pain or pulmonary issues. Vital signs were stable on arrival. Patient denies any recent trauma. Chief Complaint: Chest Pain Time Seen by MD: 16:53 Primary Care Provider: FER Reviewed Notes: Nurses Notes Allergies: Coded Allergies: NO KNOWN ALLERGIES (Unverified , 02/01/24) Home Meds Active Scripts Losartan Potassium & Hydrochlo (Losartan Potassium/Hydroc) 1 Tab Tab, 1 TAB PO DAILY, #30 TAB 5 Refills Prov:THALIA OGDEN MD 02/01/24 Reported Medications Gabapentin (Gabapentin) 600 Mg Tab, 1 TAB PO TID 05/31/24 Memantine HCl (Memantine Hydrochloride E) 28 Mg Cap, 1 TAB PO DAILY 05/31/24 Rivastigmine (Rivastigmine Transdermal) 9.5 Mg/24 Hr Dis, 1 PATCH TD DAILY 05/31/24 Eszopiclone (Eszopiclone) 3 Mg Tab, 1 TAB PO DAILY 05/31/24 Cariprazine HCl (Vraylar) 6 Mg Cap, 1 TAB PO DAILY 05/31/24 Finasteride (Finasteride) 5 Mg Tab, 1 TAB PO DAILY 05/31/24 Docusate Sodium (Docusate Sodium) 100 Mg Cap, 1 TAB PO BID 05/31/24 Rosuvastatin Calcium (Rosuvastatin Calcium) 20 Mg Tab, 1 TAB PO DAILY 05/31/24 Diltiazem HCl Coated Beads (Diltiazem HCl ER) 120 Mg Cap, 1 TAB PO DAILY 05/31/24 Amlodipine Besylate (Amlodipine Besylate) 5 Mg Tab, 1 TAB PO DAILY 05/31/24 Betaxolol Hydrochloride (Betaxolol Hcl) 10 Mg Tab, 1 TAB PO TID 05/31/24 Modafinil (MODAFINIL) 200 Mg Tab, 1 TAB PO EOD 05/31/24 Empagliflozin (Jardiance) 10 Mg Tab, 1 TAB PO DAILY 05/31/24 Tamsulosin Hcl (Tamsulosin Hcl) 0.4 Mg Cap, 0.4 MG PO DAILY 05/31/24 Losartan Potassium (Losartan Potassium) 50 Mg Tab, 1 TAB PO BID 05/31/24 Information Source: Patient Mode of Arrival: Ambulatory Severity: Moderate Timing: Days Duration: Intermittent Prehospital treatment: None Location: Substernal Quality: Squeezing, Pressure Onset: At Rest Cardiac Risk Factors: None PE Risk Factors: None History of: None Associated Signs and Symptoms: Other (Headache) Past Medical History PAST MEDICAL HISTORY: Arthritis, CAD, Cancer, DM, High Lipids, HTN, Schizophrenia Surgical History: Denies all surgeries Family History Family History: Family hx of Cancer, Family hx of heart cyndi Social History Smoker: Cigarettes Alcohol: Denies ETOH Use Drugs: Marijuana, Other Lives In: Home Constitutional: denies: chills, diaphoresis, fatigue, fever, malaise, sweats, weakness, others EENTM: denies: blurred vision, double vision, ear bleeding, ear discharge, ear drainage, ear pain, ear ringing, eye pain, eye redness, hearing loss, mouth pain, mouth swelling, nasal discharge, nose bleeding, nose congestion, nose pain, photophobia, tearing, throat pain, throat swelling, voice changes, others Respiratory: denies: cough, hemoptysis, orthopnea, SOB at rest, shortness of breath, SOB with excertion, stridor, wheezing, others Cardiovascular: reports: chest pain; denies: dizzy spells, diaphoresis, Dyspnea on exertion, edema, irregular heart beat, left arm pain, lightheadedness, palpitations, PND, syncope, others Gastrointestinal: denies: abdomen distended, abdominal pain, blood streaked bowels, constipated, diarrhea, dysphagia, difficulty swallowing, hematemesis, melena, nausea, poor appetite, poor fluid intake, rectal bleeding, rectal pain, vomiting, others Genitourinary: denies: burning, dysuria, flank pain, frequency, hematuria, incontinence, penile discharge, penile sore, pain, testicle pain, testicle swelling, urgency, others Neurological: reports: headache; denies: dizziness, fainting, left sided numbness, left sided weakness, numbness, paresthesia, pre-existing deficit, right sided numbness, right sided weakness, seizure, speech problems, tingling, tremors, weakness, others Musculoskeletal: denies: back pain, gout, joint pain, joint swelling, muscle pain, muscle stiffness, neck pain, others Integumetry: denies: bruises, change in color, change in hair/nails, dryness, laceration, lesions, lumps, rash, wounds, others Allergic/Immunocompromised: denies: Difficulty Healing, Frequent Infections, Hives, Itching, others Hematologic/Lymphatic: denies: anemia, blood clots, easy bleeding, easy bruisi ng, swollen glands, others Endocrine: denies: excessive hunger, excessive sweating, excessive thirst, exce ssive urination, flushing, intolerance to cold, intolerance to heat, unexplained weight gain, unexplained weight loss, others Psychiatric: denies: anxiety, bipolar disorder, depression, hopeless, panic disorder, schizophrenia, sleepless, suicidal, others Physical Exam General Appearance: Moderate Distress (Generic discomfort due to complaints.), Obese HEENT: Head (Cranial exam was unremarkable. No skull depressions or deformities. No signs of trauma.), Normal ENT Inspection, Pharynx Normal, TMs Normal Neck: Full Range of Motion, Non-Tender, Normal, Normal Inspection Respiratory: Chest Non-Tender, Lungs Clear, No Accessory Muscle Use, No Respiratory Distress, Normal Breath Sounds Cardiovascular: No Edema, No JVD, No Murmur, No Gallop, Normal Peripheral Pulses, Regular Rate/Rhythm, Other (Unremarkable cardiac evaluation.) Breast Exam: Deferred Gastrointestinal: No Organomegaly, Non Tender, No Pulsatile Mass, Normal Bowel Sounds, Soft Genitalia: Deferred Pelvic: Deferred Rectal: Deferred Extremities: No calf tenderness, Normal capillary refill, Normal inspection, Normal range of motion, Non-tender, No pedal edema Neurologic: Alert, No Motor Deficits, Normal Affect, Normal Mood, No Sensory Deficits Cerebellar Function: NOT DONE Reflexes: NOT DONE Skin: Dry, Normal Color, Warm Lymphatic: No Adenopathy Was a procedure done? Was a procedure done?: No CP Differential Dx Differential Diagnosis: A-fib, Anxiety / Panic Attack, Atrial Dysrhythmia, AV Block 1st Degree, NC, Other (Headache, subarachnoid hemorrhage, subdural hematoma, intracranial neoplasm) Differential Diagnosis: Angina X-Ray, Labs, Meds, VS Vital Signs Date Time Temp Pulse Resp B/P (MAP) Pulse Ox O2 Delivery O2 Flow Rate FiO2 10/30/24 17:57 82 10/30/24 17:08 82 10/30/24 16:46 98.0 87 15 141/102 96 98.0 Lab Test 10/30/24 18:02 10/30/24 17:15 Range/Units Troponin I High Sensitivity 3 L 3 L </=54 ng/L White Blood Count 7.8 4.4-10.8 10^3/uL Red Blood Count 4.91 4.5-5.90 10^6/uL Hemoglobin 14.3 13.5-17.5 g/dL Hematocrit 42.9 41.0-53.0 % Mean Corpuscular Volume 87.4 80.0-100.0 fL Mean Corpuscular Hemoglobin 29.0 28.0-32.0 pg Mean Corpuscular Hemoglobin Concent 33.2 32.0-36.0 g/dL Red Cell Distribution Width 16.8 H 11.8-14.3 % Platelet Count 264 140-450 10^3/uL Mean Platelet Volume 8.5 6.9-10.8 fL Neutrophils (%) (Auto) 55.0 37.0-80.0 % Lymphocytes (%) (Auto) 36.6 10.0-50.0 % Monocytes (%) (Auto) 5.6 0.0-12.0 % Eosinophils (%) (Auto) 2.3 0.0-7.0 % Basophils (%) (Auto) 0.5 0.0-2.0 % Neutrophils # (Auto) 4.3 1.6-8.6 10 ^3/uL Lymphocytes # (Auto) 2.9 0.4-5.4 10 ^3/uL Monocytes # (Auto) 0.4 0-1.3 10 ^3/uL Eosinophils # (Auto) 0.2 0-0.8 10 ^3/uL Basophils # (Auto) 0 0-0.2 10 ^3/uL Nucleated Red Blood Cells 0.1 % Sodium Level 146 H 136-145 mmol/L Potassium Level 3.9 3.5-5.1 mmol/L Chloride Level 112 H 98-107 mmol/L Carbon Dioxide Level 25 20-31 mmol/L Anion Gap 9 5-15 Blood Urea Nitrogen 20 9-23 mg/dL Creatinine 1.42 H 0.700-1.30 mg/dL Glomerular Filtration Rate Calc 61 >90 mL/min BUN/Creatinine Ratio 14.1 10.0-20.0 Serum Glucose 134 H 74-106 mg/dL Lactic Acid Level 1.6 0.4-2.0 mmol/L Calcium Level 9.4 8.7-10.4 mg/dL Total Bilirubin 0.3 0.2-1.0 mg/dL Aspartate Amino Transferase (AST) 17 13-40 U/L Alanine Aminotransferase (ALT) 19 7-40 U/L Alkaline Phosphatase 134 H 46-116 U/L B-Type Natriuretic Peptide 12.93 0-100 pg/mL Total Protein 7.0 5.7-8.2 g/dL Albumin 4.5 3.2-4.8 g/dL Lipase 49 12-53 U/L Plasma/Serum Blood Alcohol < 3.0 <10 mg/dL X-Ray, Labs, Meds, VS Comment All studies performed the ED were evaluated by me personally. Serum studies were unremarkable for any systemic concerns. Unremarkable cardiac markers noted. EKG revealed a sinus rhythm with a rate of 82. Abnormal R-wave progression and early transition was noted. AK interval 158 and QT interval of 368. Head CT was unremarkable for any acute intracranial process or neoplasm formation. Unknown as the cause of the patient's concerns. Advised patient follow up with the primary care provider for discussions related to today's visit. Time of 1ST Reevaluation: 21:31 Reevaluation 1ST: Improved Consultation: PCP, Cardiology Patient Education/Counseling: Diagnosis, Treatment Family Education/Counseling: Diagnosis, Treatment SEPSIS Sepsis Screen Date sepsis recognized/suspect: Oct 30, 2024 Time Sepsis recognized/suspect: 1648 Recent Procedure: No On Antibiotic Therapy: No Respiratory Rate >20: No Heart Rate >90: No Temp<36 C (96.8 F) or >38.3 C: No SBP <90 or MAP <65 mmHG: No New Acute Mental Status Change: No Is the patient on CPAP, BIPAP,: No Physician Orders Electrocardigram (10/30/24 17:50) Electrocardigram (10/30/24 19:50) Urinalysis (10/30/24 16:58) Drug Screen (10/30/24 16:58) Head Without Contrast (10/30/24 16:58) Vital Signs Date Time Temp Pulse Resp B/P (MAP) Pulse Ox O2 Delivery O2 Flow Rate FiO2 10/30/24 17:57 82 10/30/24 17:08 82 10/30/24 16:46 98.0 87 15 141/102 96 98.0 Laboratory Tests Test 10/30/24 17:15 Lactic Acid Level 1.6 mmol/L (0.4-2.0) White Blood Count 7.8 10^3/uL (4.4-10.8) Departure 1 Departure Time of Disposition: 21:32 Impression: Primary Impression: Chest pain Additional Impression: Headache Disposition: HOME / SELF CARE / HOMELESS Condition: Stable Additional Instructions: Advised patient utilize pain medication as needed for symptomatic relief. Advised good hydration and healthy nutrition. If symptoms continue, patient should follow up with the primary care provider for discussions related to today's visit and complain issues. e-Prescriptions Ibuprofen Micronized (Ibuprofen) 800 Mg Tab 800 MG PO Q8HP PRN, #20 TAB Prov: PRERNA MARAVILLA PAC 10/30/24 Discharged With: Self, Friend Critical Care Note Critical Care Time?: No Stability Stability form required: No Heart Score Heart Score: Heart Score Response (Comments) Value History Slightly Suspicious 0 EKG Normal 0 Age 45-64 1 Risk Factors No known risk factors 0 Troponin Normal limit 0 Total 1 PRERNA MARAVILLA PAC Oct 30, 2024 21:33
--- NOTE | 2024-10-30 21:43 | ED.PDOC ---
History of Present Illness HPI Comments 49 y/o M presents with c/c chest pain, confusion, and headache. Patient reports on having symptoms, intermittently, for 1x week, that began with a centralized head pain, which he endorses on radiating to his chest and is making him confused. Patient states on symptoms worsening over the past hour. Denies any further acute symptoms. Positive for multiple comorbidities. Chief Complaint: Chest Pain Time Seen by MD: 16:50 Primary Care Provider: FER Reviewed Notes: Nurses Notes, Medications, Allergies Allergies: Coded Allergies: NO KNOWN ALLERGIES (Unverified , 02/01/24) Home Meds Active Scripts Ibuprofen Micronized (Ibuprofen) 800 Mg Tab, 800 MG PO Q8HP PRN, #20 TAB Prov:PRERNA MARAVILLA PAC 10/30/24 Losartan Potassium & Hydrochlo (Losartan Potassium/Hydroc) 1 Tab Tab, 1 TAB PO DAILY, #30 TAB 5 Refills Prov:THALIA OGDEN MD 02/01/24 Reported Medications Gabapentin (Gabapentin) 600 Mg Tab, 1 TAB PO TID 05/31/24 Memantine HCl (Memantine Hydrochloride E) 28 Mg Cap, 1 TAB PO DAILY 05/31/24 Rivastigmine (Rivastigmine Transdermal) 9.5 Mg/24 Hr Dis, 1 PATCH TD DAILY 05/31/24 Eszopiclone (Eszopiclone) 3 Mg Tab, 1 TAB PO DAILY 05/31/24 Cariprazine HCl (Vraylar) 6 Mg Cap, 1 TAB PO DAILY 05/31/24 Finasteride (Finasteride) 5 Mg Tab, 1 TAB PO DAILY 05/31/24 Docusate Sodium (Docusate Sodium) 100 Mg Cap, 1 TAB PO BID 05/31/24 Rosuvastatin Calcium (Rosuvastatin Calcium) 20 Mg Tab, 1 TAB PO DAILY 05/31/24 Diltiazem HCl Coated Beads (Diltiazem HCl ER) 120 Mg Cap, 1 TAB PO DAILY 05/31/24 Amlodipine Besylate (Amlodipine Besylate) 5 Mg Tab, 1 TAB PO DAILY 05/31/24 Betaxolol Hydrochloride (Betaxolol Hcl) 10 Mg Tab, 1 TAB PO TID 05/31/24 Modafinil (MODAFINIL) 200 Mg Tab, 1 TAB PO EOD 05/31/24 Empagliflozin (Jardiance) 10 Mg Tab, 1 TAB PO DAILY 05/31/24 Tamsulosin Hcl (Tamsulosin Hcl) 0.4 Mg Cap, 0.4 MG PO DAILY 05/31/24 Losartan Potassium (Losartan Potassium) 50 Mg Tab, 1 TAB PO BID 05/31/24 Information Source: Patient Mode of Arrival: Ambulatory Timing: Days Duration: Intermittent Prehospital treatment: None Past Medical History PAST MEDICAL HISTORY: Arthritis, CAD, Cancer, DM, High Lipids, HTN, Schizophrenia Surgical History: Denies all surgeries Family History Family History: Family hx of Cancer, Family hx of heart cyndi Social History Smoker: Cigarettes Alcohol: Denies ETOH Use Drugs: Marijuana, Other Lives In: Home All Other Systems: Reviewed and Negative ( comprehensive review of systems are negative unless otherwise stated in HPI) Was a procedure done? Was a procedure done?: No EKG EKG : Pulse Rate (adult): 82 [place]: Normal Cardiac Rhythm: NSR Block: None Hypertrophy: None ST: Normal Differential Dx Considerations may include: UT, PE, ACS, URI, PNA, viral syndrome, angina, dehydration, electrolyte imbalance, tension, migraines, among others X-Ray, Labs, Meds, VS Vital Signs Date Time Temp Pulse Resp B/P (MAP) Pulse Ox O2 Delivery O2 Flow Rate FiO2 10/30/24 21:43 82 10/30/24 17:57 82 10/30/24 17:08 82 10/30/24 16:46 98.0 87 15 141/102 96 98.0 Lab Test 10/30/24 18:02 10/30/24 17:15 Range/Units Troponin I High Sensitivity 3 L 3 L </=54 ng/L White Blood Count 7.8 4.4-10.8 10^3/uL Red Blood Count 4.91 4.5-5.90 10^6/uL Hemoglobin 14.3 13.5-17.5 g/dL Hematocrit 42.9 41.0-53.0 % Mean Corpuscular Volume 87.4 80.0-100.0 fL Mean Corpuscular Hemoglobin 29.0 28.0-32.0 pg Mean Corpuscular Hemoglobin Concent 33.2 32.0-36.0 g/dL Red Cell Distribution Width 16.8 H 11.8-14.3 % Platelet Count 264 140-450 10^3/uL Mean Platelet Volume 8.5 6.9-10.8 fL Neutrophils (%) (Auto) 55.0 37.0-80.0 % Lymphocytes (%) (Auto) 36.6 10.0-50.0 % Monocytes (%) (Auto) 5.6 0.0-12.0 % Eosinophils (%) (Auto) 2.3 0.0-7.0 % Basophils (%) (Auto) 0.5 0.0-2.0 % Neutrophils # (Auto) 4.3 1.6-8.6 10 ^3/uL Lymphocytes # (Auto) 2.9 0.4-5.4 10 ^3/uL Monocytes # (Auto) 0.4 0-1.3 10 ^3/uL Eosinophils # (Auto) 0.2 0-0.8 10 ^3/uL Basophils # (Auto) 0 0-0.2 10 ^3/uL Nucleated Red Blood Cells 0.1 % Sodium Level 146 H 136-145 mmol/L Potassium Level 3.9 3.5-5.1 mmol/L Chloride Level 112 H 98-107 mmol/L Carbon Dioxide Level 25 20-31 mmol/L Anion Gap 9 5-15 Blood Urea Nitrogen 20 9-23 mg/dL Creatinine 1.42 H 0.700-1.30 mg/dL Glomerular Filtration Rate Calc 61 >90 mL/min BUN/Creatinine Ratio 14.1 10.0-20.0 Serum Glucose 134 H 74-106 mg/dL Lactic Acid Level 1.6 0.4-2.0 mmol/L Calcium Level 9.4 8.7-10.4 mg/dL Total Bilirubin 0.3 0.2-1.0 mg/dL Aspartate Amino Transferase (AST) 17 13-40 U/L Alanine Aminotransferase (ALT) 19 7-40 U/L Alkaline Phosphatase 134 H 46-116 U/L B-Type Natriuretic Peptide 12.93 0-100 pg/mL Total Protein 7.0 5.7-8.2 g/dL Albumin 4.5 3.2-4.8 g/dL Lipase 49 12-53 U/L Plasma/Serum Blood Alcohol < 3.0 <10 mg/dL [facility] [id number] [facility] [id number] Ph: [phone] DIAGNOSTIC IMAGING Diagnostic Imaging Report : [id number] Signed PATIENT: FABIO MONACONICOLLE Garrett ACCT: [id number] UNIT: [id number] : 1975 LOC: ER ROOM / BED: / AGE / SEX: 49 / M ADM STATUS: REG ER SERVICE 57 ORDERING PHYSICIAN: PRERNA MARAVILLA PAC PROCEDURE(s): HWOCT - HEAD WITHOUT CONTRAST REASON: Altered mental status/frontal headache ORDER NUMBER(s): [id number], ACCESSION NUMBER(s): [id number] EXAM DESCRIPTION: CT HEAD WITHOUT CONTRAST CLINICAL HISTORY: Altered mental status/frontal headache COMPARISON: None TECHNIQUE: Noncontrast CT head was performed. Coronal MPR images were generated. CTDI/ DLP = 59.07 / 1.71. Dose reduction technique with one or more of the following methods was performed: Automated exposure control, adjustment of the mA and/or kV according to patient size, use of iterative reconstruction te[place]. FINDINGS: No evidence of acute intracranial hemorrhage. No mass effect. No extra-axial collections of fluid or blood. The brain is normal in attenuation. The ventricles and sulci are normal in size for age. Clear basal cisterns. The calvarium is intact. The soft tissues are unremarkable. The paranasal sinuses and mastoid air cells are clear. IMPRESSION: 1. No acute intracranial findings. ATED BY: TIMOTHY ALBERTO MD DICTATED DATE/TIME: 10/30/241754 SIGNED BY: TIMOTHY ALBERTO MD SIGNED DATE/TIME: 10/30/241754 CC: Time of 1ST Reevaluation: 17:20 Reevaluation 1ST: Improved Patient Education/Counseling: Diagnosis, Treatment, Need For Follow Up Family Education/Counseling: No Family Present SEPSIS Sepsis Screen Date sepsis recognized/suspect: Oct 30, 2024 Time Sepsis recognized/suspect: 1649 Recent Procedure: No On Antibiotic Therapy: No Respiratory Rate >20: No Heart Rate >90: No Temp<36 C (96.8 F) or >38.3 C: No SBP <90 or MAP <65 mmHG: No New Acute Mental Status Change: No Is the patient on CPAP, BIPAP,: No Physician Orders Electrocardigram (10/30/24 17:50) Electrocardigram (10/30/24 19:50) Urinalysis (10/30/24 16:58) Drug Screen (10/30/24 16:58) Head Without Contrast (10/30/24 16:58) Vital Signs Date Time Temp Pulse Resp B/P (MAP) Pulse Ox O2 Delivery O2 Flow Rate FiO2 10/30/24 21:43 82 10/30/24 17:57 82 10/30/24 17:08 82 10/30/24 16:46 98.0 87 15 141/102 96 98.0 Laboratory Tests Test 10/30/24 17:15 Lactic Acid Level 1.6 mmol/L (0.4-2.0) White Blood Count 7.8 10^3/uL (4.4-10.8) Departure 1 Departure Time of Disposition: 21:32 Impression: Primary Impression: Chest pain Additional Impression: Headache Disposition: HOME / SELF CARE Condition: Stable Additional Instructions: Advised patient utilize pain medication as needed for symptomatic relief. Advised good hydration and healthy nutrition. If symptoms continue, patient should follow up with the primary care provider for discussions related to today's visit and complain issues. e-Prescriptions Ibuprofen Micronized (Ibuprofen) 800 Mg Tab 800 MG PO Q8HP PRN, #20 TAB Prov: PRERNA MARAVILLA PAC 10/30/24 Discharged With: Self, Friend Critical Care Note Critical Care Time?: No Stability Stability form required: No Heart Score Heart Score: Heart Score Response (Comments) Value History Moderate Suspicious 1 EKG Normal 0 Age 45-64 1 Risk Factors >3 or Hx ASHD 2 Troponin Normal limit 0 Total 4 I personally scribed for PRERNA MARAVILLA PAC ([email or web address]) on 10/30/24 at 21:43. Electronically submitted by David Nuñez ([email or web address]). I personally scribed for PRERNA MARAVILLA PAC ([email or web address]) on 10/30/24 at 22:12. Electronically submitted by David Nuñez ([email or web address]). PRERNA MARAVILLA PAC Oct 30, 2024 21:43
[2024-10-30 23:04] VITALS: BP 138/89; TEMP 97.9
[2024-10-30 23:06] VITALS: PULSE 78; RESP 18; O2SAT 95
--- NOTE | 2024-11-01 06:37 | ECG ---
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
== END 2024-10-30 23:25 | disposition home or self-care (01) ==
LOC: ER 16:44
DX: R07.9 Chest pain, unspecified (principal); R51.9 Headache, unspecified; I10 Essential (primary) hypertension; E11.9 Type 2 diabetes mellitus without complications; E78.5 Hyperlipidemia, unspecified; M19.90 Unspecified osteoarthritis, unspecified site; I25.10 Atherosclerotic heart disease of native coronary artery without angina pectoris; F20.9 Schizophrenia, unspecified; F17.210 Nicotine dependence, cigarettes, uncomplicated; R06.02 Shortness of breath; Z79.899 Other long term (current) drug therapy
CPT/HCPCS: 36415; 70450; 80053; 80320; 83605; 83690; 83880; 84484; 85025; 93005